=== PATIENT | female | born 1940 | race Caucasian/White ===

== ENCOUNTER 2022-07-21 16:30 | Inpatient (IN) | payer OTHER ==
[~2022-07-21] VITALS: Ht 157.5 cm; Wt 68.0 kg
--- NOTE | 2022-07-21 16:42 | NUR ---
BIB [facility] 860 FROM HOME C/O RECTAL BLEED X1 HOUR DENIES ANY ABDOMINAL PAIN. PT ALSO EXPRESSES ANXIETY FOR BEING IN THE HOSPITAL. AAOX4. VSS. BREATHING EVEN AND UNLABORED. AWAITING MD ORDERS.
--- NOTE | 2022-07-21 17:10 | NUR ---
IV ESTABLISHED R AC 20G
[2022-07-21] MEDS ORDERED: PANTOPRAZOLE 40 MG VIAL IV ONE (18:00)
--- NOTE | 2022-07-21 18:03 | NUR ---
CALLED [facility] AND OPENED UP CASE FOR THE PT
[2022-07-21 18:20] LABS: BASOPHILS % (AUTO) 0.3 % (0.0-2.0); EOSINOPHILS % (AUTO) 2.5 % (0.0-6.0); HEMATOCRIT 30 % (33-45); HEMOGLOBIN 9.5 g/dL (11.5-14.8); LYMPHOCYTES # (AUTO) 2.1 K/uL (0.8-4.8); LYMPHOCYTES % (AUTO) 15.1 % (20.0-44.0); MEAN CORPUSCULAR HGB CONC 32 g/dl (31.0-36.0); MEAN CORPUSCULAR VOLUME 91 fL (82-100); MONOCYTES % (AUTO) 7.1 % (2.0-12.0); NEUTROPHILS # (AUTO) 10.6 K/uL (1.8-8.9); PLATELET COUNT (AUTO) 479 K/uL (150-450); RED BLOOD CELL COUNT(AUTO) 3.31 MIL/uL (4.0-5.2); WHITE BLOOD COUNT (AUTO) 14.2 K/uL (4.3-11.0)
[2022-07-21] MEDS ORDERED: PANTOPRAZOLE 40 MG VIAL ONE (18:23)
[2022-07-21] MEDS ORDERED: IV NS 0.9% 1,000 ML IV ONE (18:30)
--- NOTE | 2022-07-21 18:44 | NUR ---
covid swab collected and sent to lab.
[2022-07-21 18:46] LABS: BILIRUBIN,DIRECT 0.1 mg/dL (0.0-0.2); BILIRUBIN,TOTAL 0.2 mg/dL (0.2-1.0); CALCIUM, SERUM 8.8 mg/dL (8.5-10.1); CREATININE 0.9 mg/dL (0.6-1.3); POTASSIUM 4.7 mmol/L (3.5-5.1)
--- NOTE | 2022-07-21 18:52 | NUR ---
TO [facility] COLLECTED AND SENT
[2022-07-21] MEDS ORDERED: VANCOMYCIN 1 GM in IV D5W 250 ML IV ONE (19:00)
[2022-07-21] MEDS ORDERED: CEFEPIME 1 GM in IV D5W 50 ML IV ONE (19:00)
[2022-07-21] MEDS ORDERED: IOHEXOL-300 100 ML VIAL IV ONE (19:03)
[2022-07-21] MEDS ORDERED: IV NS 0.9% 250 ML IV ONE (19:03)
--- NOTE | 2022-07-21 19:13 | NUR ---
PT TAKEN TO CT VIA ANDREW
[2022-07-21 20:16] LABS: BILIRUBIN,URINE NEGATIVE (NEGATIVE); COLOR,URINE YELLOW (YELLOW); LEUKOCYTE ESTERASE ,URINE 3+ (NEGATIVE); NITRITE, URINE POSITIVE (NEGATIVE); PROTEIN,URINE 1+ mg/dl (NEGATIVE); UGLUCOSE NEGATIVE (NEGATIVE); UROBILINOGEN,URINE 0.2 EU/dL (0.2)
[2022-07-21 20:26] LABS: BACTERIA,URINE 2+ /HPF (None Seen); RBC,URINE 51-80 /HPF (0-2); SQUAMOUS EPITHELIAL CELL,UR 0-2 /HPF (None Seen); WBC,URINE 81-100 /HPF (0-3)
--- NOTE | 2022-07-21 21:36 | NUR ---
DURGA BARNARD ON THE PHONE WITH DR SNIDER
[2022-07-21] MEDS ORDERED: LEVOFLOXACIN 500 MG /D5W 100ML 500 MG in PREMIX 1 EA IV ONE (22:30)
--- NOTE | 2022-07-21 22:46 | NUR ---
REPORT GIVEN TO FERN Peterson RN FOR CORINE
--- NOTE | 2022-07-21 23:00 | NUR ---
RN RECEIVING PATIENT FROM ER NOTE PATIENT ARRIVED TO UNIT FROM ER VIA GURNEY. PATIENT TRANSFERRED TO ASSIGNED BED BY STAFF. A/OX4. NO S/S OF DISTRESS, BREATHING WITHOUT DIFFICULTY ON 3L NC. RAC #20 INTACT AND PATENT. TELE READS SR 98. PATIENT WAS ORIENTED TO UNIT. PATIENT GIVEN CALL LEMUS AND INSTRUCTED ON ITS USE. ALL BELONGINGS ACCOUNTED FOR, LOGGED INTO SHEET, AND PLACED IN CHART. TELE MONITOR SUCCESFULLY APPLIED TO PATIENT. ALL QUESTIONS AND CONCERNS ADDRESSED. VERIFIED WITH ON-CALL MD DIET: TO BE CLEAR LIQUIDS; CHANGE OF LERNER: AFFIRMATIVE TO CHANGE LERNER. SAFETY MEASURES IN PLACE: BED LOCKED AND AT LOWEST POSITION, LOW FOWLERS, RAILS UP X2, CALL LEMUS WITHIN REACH. WILL CONTINUE TO MONITOR PATIENT.
--- NOTE | 2022-07-21 23:07 | NUR ---
PT TRANSFERRED TO 312-1 VIA ACLS PROTOCOL. VSS. PT TOLERATED PROCEDURE WELL.
[2022-07-21] MEDS ORDERED: LEVOFLOXACIN 500 MG /D5W 100ML 100 ML IV ONE (23:46)
[2022-07-22] VITALS (7 sets, daily range): BP systolic 101–135; BP diastolic 63–78
[2022-07-22] MEDS: IV D5/0.45 NACL 1,000 ML IV PRN (00:12)
[2022-07-22] MEDS ORDERED: IPRATROPIUM BROMIDE 14 GM INHALER (or 12.9 GM) IH PRN (02:00)
[2022-07-22] MEDS ORDERED: ALBUTEROL FS 2.5 MG/0.5 ML VIAL.NEB NEB PRN (02:00)
[2022-07-22] MEDS: HYDROCODONE/APAP 5/325MG TABLET PO PRN ×2 (04:05→12:31)
--- NOTE | 2022-07-22 06:19 | NUR ---
RN NOTE PATIENT'S DAUGHTER, JONATHAN, CONTACTED UNIT. HIPAA PROTOCOLS FOLLOWED. ALL QUESTIONS AND CONCERNS ADDRESSED. PATIENT STABLE; WILL CONTINUE TO MONITOR PATIENT. Addendum: 07/22/22 at 0652 by FERN CONKLIN RN JONATHANScott COSME NUMBER: [phone]
--- NOTE | 2022-07-22 06:24 | NUR ---
RN CLOSING NOTE PATIENT ASLEEP IN BED. A/OX4. NO S/S OF DISTRESS, BREATHING WITHOUT DIFFICULTY ON 3L NC. RAC #20 INTACT AND PATENT W/ D5-1/2NS 50ML/HR. TELE READS SR 90 W/ PACs. SAFETY MEASURES IN PLACE: BED LOCKED AND AT LOWEST POSITION, MID-FOWLERS, RAILS UP X2, CALL LEMUS WITHIN REACH. WILL ENDORSE TO NEXT SHIFT FOR CORINE.
[2022-07-22 06:58] LABS: BASOPHILS % (AUTO) 0.2 % (0.0-2.0); HEMATOCRIT 27 % (33-45); HEMOGLOBIN 8.6 g/dL (11.5-14.8); LYMPHOCYTES # (AUTO) 1.8 K/uL (0.8-4.8); LYMPHOCYTES % (AUTO) 15.9 % (20.0-44.0); MEAN CORPUSCULAR HGB CONC 32 g/dl (31.0-36.0); MEAN CORPUSCULAR VOLUME 91 fL (82-100); MONOCYTES % (AUTO) 8.3 % (2.0-12.0); NEUTROPHILS # (AUTO) 8.4 K/uL (1.8-8.9); NEUTROPHILS % (AUTO) 72.6 % (43.0-81.0); PLATELET COUNT (AUTO) 461 K/uL (150-450); RED BLOOD CELL COUNT(AUTO) 3.01 MIL/uL (4.0-5.2); WHITE BLOOD COUNT (AUTO) 11.6 K/uL (4.3-11.0)
[2022-07-22 07:16] LABS: ALBUMIN 1.8 g/dL (3.4-5.0); BILIRUBIN,TOTAL 0.2 mg/dL (0.2-1.0); CALCIUM, SERUM 8.1 mg/dL (8.5-10.1); CREATININE 0.8 mg/dL (0.6-1.3); MAGNESIUM 1.5 mg/dL (1.8-2.4); PHOSPHORUS 3.5 mg/dL (2.5-4.9); POTASSIUM 3.9 mmol/L (3.5-5.1); TOTAL PROTEIN, SERUM 7.3 g/dL (6.4-8.2)
[2022-07-22 07:22] LABS: THYROID STIMULATING HORMONE 33.025 uIU/mL (0.358-3.74)
--- NOTE | 2022-07-22 07:55 | NUR ---
WEDDING DESIGNER OPENING NOTE Patient in bed, asleep. A/O x 4. On O2 at 3LPM via NC, no SOB or s/s of distress noted. IV access on RAC #20 infusing D5 1/2 NS at 50 ml/hr. On external monitor, showing SR, HR 84. Sousa catheter in place. Safety precautions in place: bed in low, locked position; siderails up x 2; call light within reach. Will continue to monitor.
[2022-07-22] MEDS: PANTOPRAZOLE 40 MG VIAL IV SCH ×2 (08:43→21:24)
--- NOTE | 2022-07-22 08:59 | NUR ---
WOUND CARE CONSULT:PT PRESENTS WITH RECTAL BLEEDING WITH CLOTS, AREAS OF EXCORIATION TO RT BUTTOCK, SACRAL SCAR AND LOWER BACK UNSTAGEABLE PRESSURE ULCER, ALL PRESENT ON ADMISSION. DR MUNIZ CALLED FOR SURGICAL CONSULT. DISCUSSED SKIN PROTECTION AND WOUND CARE RECOMMENDATIONS WITH NURSING STAFF. IN AGREEMENT WITH PLAN OF CARE. YANN CARRERA NOTED. Addendum: 07/22/22 at 0901 by JONATHAN WHITESIDE WNDNU Amended: Links added.
[2022-07-22] MEDS ORDERED: Z GUARD REMEDY 4 OZ OINT TP PRN (09:00)
[2022-07-22] MEDS ORDERED: GABA-532 PO (09:13)
[2022-07-22] MEDS ORDERED: ESCI10TA PO (09:13)
[2022-07-22] MEDS ORDERED: LUBI24CA5 PO (09:13)
[2022-07-22] MEDS ORDERED: CALC0.253 PO (09:13)
[2022-07-22] MEDS ORDERED: BUSP10TA35 PO (09:13)
[2022-07-22] MEDS ORDERED: FURO20TA4 PO (09:14)
[2022-07-22] MEDS ORDERED: SIMV10TA98 PO (09:14)
[2022-07-22] MEDS ORDERED: QUET400T PO (09:14)
[2022-07-22] MEDS ORDERED: MELA3TAB41 PO (09:14)
[2022-07-22] MEDS ORDERED: HYDR-4076 PO (09:14)
[2022-07-22] MEDS ORDERED: BISO5TAB20 PO (09:14)
[2022-07-22] MEDS ORDERED: PANT40TA49 PO (09:14)
[2022-07-22] MEDS ORDERED: SENN-261 PO (09:14)
[2022-07-22] MEDS ORDERED: MIRT-90 PO (09:14)
[2022-07-22] MEDS ORDERED: LEVO75TA7 PO (09:14)
[2022-07-22] MEDS ORDERED: IPRATROPIUM NEB FS 0.5 MG/2.5 ML AMPUL.NEB NEB PRN (10:00)
[2022-07-22] MEDS: Magnesium 1GM/D5W 100ML PREMIX 100 ML IV SCH ×2 (11:01→12:11)
[2022-07-22] MEDS: Z GUARD REMEDY 4 OZ OINT TP SCH (11:01)
[2022-07-22] MEDS: ENSURE CLEAR 237 ML LIQUID (MIX BERRY) PO SCH ×2 (12:11→16:15)
[2022-07-22 12:22] LABS: HEMOGLOBIN 8.6 g/dL (11.5-14.8)
[2022-07-22] MEDS: GABAPENTIN 100 MG CAPSULE PO SCH ×2 (12:31→16:14)
[2022-07-22] MEDS: PROSOURCE / PROSTAT (PYXIS) 30 ML UDC PO SCH ×2 (12:59→16:14)
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
[2022-07-22] MEDS: DAKINS QUARTER STRENGTH (0.125%) 480 ML BOTTLE TOP SCH ×3 (13:42→23:36)
[2022-07-22] MEDS ORDERED: PEG 3350/NA SULF,BICARB,CL/KCL 4,000 ML BOTTLE PO ONE (16:00)
[2022-07-22] MEDS: busPIRone 5 MG TABLET PO SCH (16:14)
--- NOTE | 2022-07-22 19:30 | NUR ---
PORTFOLIO ACCOUNTANT OPENING NOTES RECEIVED PATIENT IN BED, RESTING COMFORTABLY. A/O X 4. NO S/S OF PAIN AT THIS TIME. ON 3L OXYGEN VIA NC, BREATHING EVEN AND UNLABORED, NO DISTRESS OR SOB NOTED. IV ACCESS RAC #20G RUNNING D5 1/2 NS @ 50ML/HR, INFUSING WELL. PATIENT ON EXTERNAL MID LEVEL GAME DESIGNER WITH CURRENT READING OF SR @ 86. LERNER CATHETER IN PLACE DRAINING TO A YELLOW COLORED URINE. SAFETY PRECAUTIONS IN PLACE WITH BED ON LOWEST AND LOCK POSITION. SIDERAILS UP X 2. CALL LIGHT AND TRAY ON EASY REACH. WILL CONTINUE WITH THE PLAN OF CARE.
--- NOTE | 2022-07-22 19:38 | NUR ---
PROCESSING ENGINEER OPENING NOTE Patient in bed, resting. A/O x 4, able to make needs known. On O2 at 3LPM via NC, no SOB or s/s of distress noted. IV access on RAC #20 infusing D5 1/2 NS at 50 ml/hr. On external monitor, showing SR, HR 80's. Sousa catheter in place draining to a yellow colored urine. All needs attended to. Due meds given. Patient prefers to lay flat on bed. Safety precautions in place: bed in low, locked position; siderails up x 2; call light within reach. Will endorse to maintenance mechanic 2nd shift nurse for CORINE.
[2022-07-22] MEDS: MIRTAZAPINE 15 MG TABLET PO SCH (21:34)
[2022-07-22] MEDS: QUETIAPINE FUMARATE 100 MG TABLET PO SCH (21:35)
[2022-07-22] MEDS: LEVOFLOXACIN 250 MG /D5W 50 ML 250 MG in PREMIX 1 EA IV SCH (22:10)
--- NOTE | 2022-07-23 04:30 | NUR ---
RN NOTES- WOUND DRESSING CHANGE WOUND CARE DONE. CLEANSED BY NS AND PAT DRY. APPLIED MOISTENED DAKINS ON THE SACRUM AND LOW BACK WOUND COVERED WITH OPTIFOAM. WILL ENDORSE TO THE NEXT SHIFT FOR DAILY DRESSING CHANGE.
[2022-07-23 07:16] LABS: CALCIUM, SERUM 8.1 mg/dL (8.5-10.1); CREATININE 0.7 mg/dL (0.6-1.3); MAGNESIUM 2.1 mg/dL (1.8-2.4); PHOSPHORUS 3.3 mg/dL (2.5-4.9); POTASSIUM 3.6 mmol/L (3.5-5.1)
[2022-07-23 07:24] LABS: BASOPHILS % (AUTO) 0.3 % (0.0-2.0); EOSINOPHILS % (AUTO) 3.7 % (0.0-6.0); HEMATOCRIT 26 % (33-45); HEMOGLOBIN 8.4 g/dL (11.5-14.8); LYMPHOCYTES # (AUTO) 1.4 K/uL (0.8-4.8); LYMPHOCYTES % (AUTO) 17.2 % (20.0-44.0); MEAN CORPUSCULAR HGB CONC 32 g/dl (31.0-36.0); MEAN CORPUSCULAR VOLUME 91 fL (82-100); MONOCYTES # (AUTO) 0.8 K/uL (0.1-1.30); MONOCYTES % (AUTO) 9.2 % (2.0-12.0); NEUTROPHILS # (AUTO) 5.7 K/uL (1.8-8.9); NEUTROPHILS % (AUTO) 69.6 % (43.0-81.0); PLATELET COUNT (AUTO) 421 K/uL (150-450); RED BLOOD CELL COUNT(AUTO) 2.89 MIL/uL (4.0-5.2); WHITE BLOOD COUNT (AUTO) 8.2 K/uL (4.3-11.0)
[2022-07-23] MEDS: IV D5/0.45 NACL 1,000 ML IV PRN (07:29)
--- NOTE | 2022-07-23 07:50 | NUR ---
SEED ANALYSIS LABORATORY ASSISTANT CLOSING NOTES PATIENT IN BED, RESTING COMFORTABLY. A/O X 4. NO S/S OF PAIN AT THIS TIME. ON 3L OXYGEN VIA NC, BREATHING EVEN AND UNLABORED, NO DISTRESS OR SOB NOTED. IV ACCESS RAC #20G RUNNING D5 1/2 NS @ 50ML/HR, INFUSING WELL. PATIENT ON EXTERNAL CHAPERONE WITH CURRENT READING OF SR @ 107. LERNER CATHETER IN PLACE DRAINED 450 CC YELLOW COLORED URINE. SAFETY PRECAUTIONS MAINTAINED WITH BED ON LOWEST AND LOCK POSITION. SIDE RAILS UP X 2. CALL LIGHT AND TRAY ON EASY REACH. WILL ENDORSE TO THE NEXT SHIFT.
--- NOTE | 2022-07-23 07:51 | NUR ---
RN OPENING NOTE RECEIVED PATIENT IN BED, ASLEEP, EASILY AROUSED. NO SIGNS OF ACUTE DISTRESS NOTED. ON O2 INHALATION @2LPM VIA N/C, NO SOB NOTED, BREATHING EVEN AND UNLABORED. ON TELEMONITOR SHOWING SINUS TACH, HR @107. DENIES ANY CHEST PAIN , NOT IN ANY CARDIAC DISTRESS. NOTED WITH IV ACCESS ON RIGHT ANTECUBITAL AREA #20G, INTACT AND PATENT WITH D5 1/2NS @50ML/HR RUNNING. F/C INTACT, DRAINING CLEAR YELLOW URINE. SAFETY MEASURE IN PLACE, BED IN LOW AND LOCKED POSITION, SIDE RAILS UP X2, CALL LIGHT PLACED WITHIN EASY REACH. WILL CONTINUE TO MONITOR PATIENT.
[2022-07-23 08:00] VITALS: BP 105/51
[2022-07-23] MEDS ORDERED: SILVER NITRATE APPLICATOR 1 EA BOX TP PRN (08:00)
[2022-07-23] MEDS ORDERED: LIDOCAINE 2% 20 ML MDV TP ONE (08:00)
[2022-07-23] MEDS ORDERED: CALCITRIOL 0.25 MCG CAPSULE PO SCH ×2 (09:00→09:45)
[2022-07-23] MEDS: LEVOTHYROXINE SODIUM 75 MCG TABLET PO SCH (09:37)
[2022-07-23] MEDS: ESCITALOPRAM OXALATE (10 MG) 10 MG TABLET PO SCH (09:40)
[2022-07-23] MEDS: GABAPENTIN 100 MG CAPSULE PO SCH ×3 (09:41→16:17)
[2022-07-23] MEDS: busPIRone 5 MG TABLET PO SCH ×2 (09:42→16:17)
[2022-07-23] MEDS: ATENOLOL 50 MG TABLET PO SCH (09:42)
[2022-07-23] MEDS: PROSOURCE / PROSTAT (PYXIS) 30 ML UDC PO SCH ×3 (09:43→16:21)
[2022-07-23] MEDS: PANTOPRAZOLE 40 MG VIAL IV SCH ×2 (09:43→21:44)
[2022-07-23] MEDS: ENSURE CLEAR 237 ML LIQUID (MIX BERRY) PO SCH ×3 (09:56→17:17)
[2022-07-23] MEDS: DAKINS QUARTER STRENGTH (0.125%) 480 ML BOTTLE TOP SCH (09:56)
[2022-07-23] MEDS: Z GUARD REMEDY 4 OZ OINT TP SCH (09:57)
[2022-07-23] MEDS: HYDROCODONE/APAP 5/325MG TABLET PO PRN (10:49)
[2022-07-23 12:00] VITALS: BP 98/55
[2022-07-23 16:04] VITALS: BP 102/55
--- NOTE | 2022-07-23 18:44 | NUR ---
RN CLOSING NOTE PATIENT IN BED, AWAKE, A/O X4. NO SIGNS OF ACUTE DISTRESS NOTED. REMAINS ON O2 INHALATION @2LPM VIA N/C, NO SOB NOTED, BREATHING EVEN AND UNLABORED. CONTINUE ON TELEMONITOR SHOWING SINUS TACH, HR @107. DENIES ANY CHEST PAIN , NOT IN ANY CARDIAC DISTRESS. WITH IV ACCESS ON RIGHT ANTECUBITAL AREA #20G, INTACT AND PATENT WITH D5 1/2NS @50ML/HR RUNNING. F/C INTACT, DRAINING CLEAR YELLOW URINE. ALL DUE MEDS GIVEN. SAFETY MEASURE MAINTAINED, BED IN LOW AND LOCKED POSITION, SIDE RAILS UP X2, CALL LIGHT PLACED WITHIN EASY REACH. WILL ENDORSE TO NEXT SHIFT FOR CONTINUITY OF CARE.
--- NOTE | 2022-07-23 19:31 | NUR ---
SEISMIC COMPUTER OPENING NOTES: RECEIVED PATIENT SLEEP IN BED, BED IN LOW POSITION CALL LIGHTS WITHIN REACH, NO COMPLAIN OF PAIN AND DISCOMFORT AT THIS TIME, ON O2 INHALATION AT 2LPM SATURATING WELL, PATIENT IS A/OX4 ABLE TO MAKE NEEDS KNOWN, ON TELE [id number], IV LINE AT RAC#20 WITH ONGOING D5 1/2 NSS@ 50ML/HR INFUSING WELL, PATIENT IS NPO POST MIDNIGHT WITH SCHEDULE COLONOSCOPY IN AM, PATIENT KEPT CLEAN AND DRY ALL NEEDS MET ENDORSE TO INCOMING SHIFT.
[2022-07-23 20:00] VITALS: BP 113/43
[2022-07-23] MEDS: MUPIROCIN OINT 2% 22 GM TUBE NS SCH (21:44)
[2022-07-23] MEDS: LEVOFLOXACIN 250 MG /D5W 50 ML 250 MG in PREMIX 1 EA IV SCH (21:44)
[2022-07-23] MEDS: QUETIAPINE FUMARATE 100 MG TABLET PO SCH (22:00)
[2022-07-23] MEDS: MIRTAZAPINE 15 MG TABLET PO SCH (22:00)
[2022-07-24] VITALS: BP 101/58
[2022-07-24 04:00] VITALS: BP 100/48
[2022-07-24] MEDS: IV D5/0.45 NACL 1,000 ML IV PRN (04:19)
[2022-07-24] MEDS ORDERED: SORBITOL SOLUTION 70% 30 ML SOLUTION PO SCH (06:00)
--- NOTE | 2022-07-24 06:49 | NUR ---
APPRENTICE LINEMAN THIRD STEP CLOSING NOTES: PATIENT AWAKE IN BED, BED IN LOW POSITION, CALL LIGHTS WITHIN REACH, O COMPLAIN OF PAIN AND DISCOMFORT AT THIS TIME, PATIENT IS A/OX4 ABLE TO MAKE NEEDS KNOWN, ON O2 INHALATION AT 2LPM SATURATING WELL, ON TELE MONITOR- SR-85 PATIENT ON NPO POST MIDNIGHT WITH SCHEDULE COLONOSCOPY IN AM, IV LINE AT RAC#20 WITH ONGOING D5 1/2 NSS@50ML/HR INFUSING WELL, PATIENT KEPT CLEAN AND DRY ALL NEEDS MET ENDORSE TO INCOMING SHIFT.
--- NOTE | 2022-07-24 07:30 | NUR ---
FIELD CHECKER OPENING NOTES RECEIVED PATIENT ON BED AWAKE AND A/O X4. ON O2 AT 2LPM VIA NASAL CANNULA TOLERATING WELL. NO SOB NOTED. NOT IN DISTRESS. WITH NO COMPLAINTS OF PAIN OR DISCOMFORT AT THIS TIME. NPO MAINTAINED SINCE MIDNIGHT FOR COLONOSCOPY PROCEDURE. WITH IV ACCESS AT THE RIGHT AC G20 WITH IVF D5 1/2NS AT 50ML/HR INFUSING WELL. ON TELE MONITOR CURRENTLY READING SINUS RHYTHM AT 80BPM. SAFETY MEASURES IN PLACED. CALL LIGHT WITHIN REACH. BED ON LOWEST LOCKED POSITION, SIDE RAILS UP X2. WILL CONTINUE TO MONITOR.
[2022-07-24 08:00] VITALS: BP 147/78
[2022-07-24] MEDS: GABAPENTIN 100 MG CAPSULE PO SCH ×3 (09:00→17:35)
[2022-07-24] MEDS: PROSOURCE / PROSTAT (PYXIS) 30 ML UDC PO SCH ×3 (09:00→17:00)
[2022-07-24] MEDS: PANTOPRAZOLE 40 MG VIAL IV SCH (11:37)
[2022-07-24 11:39] VITALS: BP 111/63
[2022-07-24] MEDS: busPIRone 5 MG TABLET PO SCH ×2 (11:39→17:36)
[2022-07-24] MEDS: ATENOLOL 50 MG TABLET PO SCH (11:39)
[2022-07-24] MEDS: ESCITALOPRAM OXALATE (10 MG) 10 MG TABLET PO SCH (11:39)
[2022-07-24] MEDS: LEVOTHYROXINE SODIUM 75 MCG TABLET PO SCH (11:40)
[2022-07-24] MEDS: ENSURE CLEAR 237 ML LIQUID (MIX BERRY) PO SCH ×3 (11:40→17:34)
[2022-07-24] MEDS: MUPIROCIN OINT 2% 22 GM TUBE NS SCH (11:40)
[2022-07-24] MEDS: DAKINS QUARTER STRENGTH (0.125%) 480 ML BOTTLE TOP SCH ×2 (11:41→11:42)
[2022-07-24] MEDS: Z GUARD REMEDY 4 OZ OINT TP SCH (11:42)
[2022-07-24 12:05] LABS: BASOPHILS % (AUTO) 0.5 % (0.0-2.0); EOSINOPHILS % (AUTO) 3.1 % (0.0-6.0); HEMATOCRIT 26 % (33-45); HEMOGLOBIN 8.1 g/dL (11.5-14.8); LYMPHOCYTES # (AUTO) 1.3 K/uL (0.8-4.8); MEAN CORPUSCULAR HGB CONC 32 g/dl (31.0-36.0); MEAN CORPUSCULAR VOLUME 90 fL (82-100); MONOCYTES # (AUTO) 0.8 K/uL (0.1-1.30); MONOCYTES % (AUTO) 11.6 % (2.0-12.0); NEUTROPHILS # (AUTO) 4.7 K/uL (1.8-8.9); NEUTROPHILS % (AUTO) 65.8 % (43.0-81.0); PLATELET COUNT (AUTO) 393 K/uL (150-450); RED BLOOD CELL COUNT(AUTO) 2.85 MIL/uL (4.0-5.2); WHITE BLOOD COUNT (AUTO) 7.1 K/uL (4.3-11.0)
[2022-07-24 12:16] LABS: POTASSIUM 3.2 mmol/L (3.5-5.1)
[2022-07-24 12:17] LABS: CALCIUM, SERUM 7.9 mg/dL (8.5-10.1); CREATININE 0.8 mg/dL (0.6-1.3); MAGNESIUM 1.8 mg/dL (1.8-2.4); PHOSPHORUS 2.9 mg/dL (2.5-4.9)
--- NOTE | 2022-07-24 19:40 | NUR ---
FURNITURE REMOVALIST CLOSING NOTES PATIENT RESTING ON BED AND A/O X4. ON O2 AT 2LPM VIA NASAL CANNULA TOLERATING WELL. PATIENT COMPLAINS OF PAIN WHEN MOVED AND TURNED AT 7/10 BUT DOESN'T ASK FOR PAIN MEDICATION. ON TELE MONITOR READING SINUS RHYTHM AT 77BPM. IV LINE REMOVED. PATIENT SIGNED DISCHARGE AND BELONGINGS LIST FORM. WITH LERNER CATHETER IN PLACED DRAINING CLEAR YELLOW URINE. PATIENT IS AWARE THAT HER PICK-UP TIME TO [facility] IS AT 1999. WOUND TREATMENT DONE. TAKEN PHOTOS OF HER WOUNDS AND PLACED ON CHART. GIVEN REPORT TO NANI BEARDEN FROM [facility]. DUE MEDS GIVEN. SAFETY MEASURES IN PLACED. CALL LIGHT WITHIN REACH. BED ON LOWEST LOCKED POSITION, SIDE RAILS UP X2. WILL ENDORSE TO NEXT SHIFT FOR CORINE.
--- NOTE | 2022-07-24 19:40 | NUR ---
FABRIC WORKER LEADER OPENING NOTES PATIENT RESTING ON BED AND A/O X4. ON O2 AT 2LPM VIA NASAL CANNULA TOLERATING WELL. PATIENT COMPLAINS OF PAIN WHEN MOVED AND TURNED AT 7/10 BUT DOESN'T ASK FOR PAIN MEDICATION. ON TELE MONITOR READING SINUS RHYTHM AT 77BPM. IV LINE REMOVED. PATIENT SIGNED DISCHARGE AND BELONGINGS LIST FORM. WITH LERNER CATHETER IN PLACED DRAINING CLEAR YELLOW URINE. PATIENT IS AWARE THAT HER PICK-UP TIME TO [facility] IS AT 1999. WOUND TREATMENT DONE. TAKEN PHOTOS OF HER WOUNDS AND PLACED ON CHART. GIVEN REPORT TO NANI BEARDEN FROM [facility]. DUE MEDS GIVEN. SAFETY MEASURES IN PLACED. CALL LIGHT WITHIN REACH. BED ON LOWEST LOCKED POSITION, SIDE RAILS UP X2. WILL ENDORSE TO NEXT SHIFT FOR CORINE. Addendum: 07/24/22 at 1956 by MARLEEN LEVIN RN ERROR.
--- NOTE | 2022-07-24 19:45 | NUR ---
PATCHER BOWLING BALL NOTES RECEIVED LYING ON BED A/O X4,BREATHING NON LABORED,NO IV ACCESS AWAITING TO BE TIMBER GRADER BY AMBULANCE,DISCHARGE TO [facility] PER PATIENT REQUEST.WILL FOLLOW UP ACCORDINGLY.
--- NOTE | 2022-07-24 20:55 | NUR ---
COMMAND AND CONTROL SYSTEMS INTEGRATOR NOTES CAP CUTTER BY TRANSPORT THIS TIME,WITH CHRONIC BILATERAL SHOULDER PAIN.PARAMEDICS ASSESSMENT SAID THAT PATIENT HAS FRACTURE. PER NURSE [id number],PATIENT DOESNT HAVE FRACTURE,NO REDNESS,NO PAIN PAIN WHEN TOUCH THE RIGHT SHOULDER.
--- NOTE | 2022-07-24 21:24 | NUR ---
GUN FITTER NOTES NURSE BEARDEN WAS GIVEN HEADS UP FOR WHAT THE PARAMEDICS COMMENTED
== END 2022-07-24 21:20 | disposition short-term general hospital (02) | DRG 377 ==
LOC: ER 16:30 → TELE 22:08
PROVIDERS: ADMIT Registered Nurse; ATTEND Nurse Practitioner Acute Care
PROC: 0DBP8ZX Excision of Rectum, Via Natural or Artificial Opening Endoscopic, Diagnostic (ICD-10-PCS; principal; 2022-07-24)
DX: K62.5 Hemorrhage of anus and rectum (principal); J15.6 Pneumonia due to other Gram-negative bacteria; J96.01 Acute respiratory failure with hypoxia; K62.6 Ulcer of anus and rectum; N39.0 Urinary tract infection, site not specified; D62 Acute posthemorrhagic anemia; J98.11 Atelectasis; K62.3 Rectal prolapse; Z20.822 Contact with and (suspected) exposure to COVID-19; K64.8 Other hemorrhoids; I10 Essential (primary) hypertension; G89.29 Other chronic pain; Z88.0 Allergy status to penicillin; Z88.1 Allergy status to other antibiotic agents; E03.9 Hypothyroidism, unspecified; Z91.14 Patient's other noncompliance with medication regimen; E66.9 Obesity, unspecified; Z68.27 Body mass index [BMI] 27.0-27.9, adult; N20.0 Calculus of kidney; K80.20 Calculus of gallbladder without cholecystitis without obstruction; L89.100 Pressure ulcer of unspecified part of back, unstageable; B96.89 Other specified bacterial agents as the cause of diseases classified elsewhere; K57.30 Diverticulosis of large intestine without perforation or abscess without bleeding
CPT/HCPCS: 36415; 71045-TC; 80048-TC; 80053-TC; 80076-TC; 81001; 83605-TC; 83690-TC; 83735-TC; 84100-TC; 84439-TC; 84443-TC; 84480; 85025-TC; 85027-TC; 85730-TC; 86850-TC; 87040-TC; 87081-TC; 87086-TC; 97112-TC; 97530-TC; A4216; A4223; A6253; A6403; C9113; C9803; G0378; J0461; J0692; J1956; J2704; J3370; J3475; J3490; J7050; J7060; Q9967